=== PATIENT | male | born 1935 | race Caucasian/White ===

== ENCOUNTER 2021-04-16 15:52 | Emergency (ER) | payer OTHER ==
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
[2021-04-16 17:07] VITALS: BP 125/54; PULSE 91
== END 2021-04-16 17:55 | disposition home or self-care (01) ==
LOC: LB.ED 15:52
DX: Z04.1 Encounter for examination and observation following transport accident (principal); E78.00 Pure hypercholesterolemia, unspecified; J44.9 Chronic obstructive pulmonary disease, unspecified; Z88.8 Allergy status to other drugs, medicaments and biological substances; Z79.82 Long term (current) use of aspirin; Z79.01 Long term (current) use of anticoagulants; V49.40XA Driver injured in collision with unspecified motor vehicles in traffic accident, initial encounter
CPT/HCPCS: 36415; 80048; 85027; 99284